=== PATIENT | female | born 1965 | race Caucasian/White ===

== ENCOUNTER 2017-12-07 13:39 | Emergency (ER) | payer OTHER ==
[~2017-12-07] VITALS: Ht 152.4 cm; Wt 68.0 kg
--- NOTE | 2017-12-07 13:54 | NUR ---
Pt admits taking xanax, advil and [employer] drinks. Pt denies SI.
--- NOTE | 2017-12-07 13:55 | NUR ---
Dr patton at the bedside for MSE.
[2017-12-07 14:23] LABS: BASOPHILS % (AUTO) 0.4 % (0.0-2.0); EOSINOPHILS % (AUTO) 0.2 % (0.0-7.0); HEMATOCRIT 40.5 % (31.2-41.9); HEMOGLOBIN 13.9 g/dL (10.9-14.3); LYMPHOCYTES # (AUTO) 1.5 K/uL (20.0-40.0); LYMPHOCYTES % (AUTO) 15.7 % (20.5-51.5); MEAN CORPUSCULAR HEMOGLOBIN 32.1 uug (24.7-32.8); MEAN CORPUSCULAR HGB CONC 34 g/dL (32.3-35.6); MEAN CORPUSCULAR VOLUME 93.5 fL (75.5-95.3); MONOCYTES # (AUTO) 0.7 K/uL (2.0-10.0); MONOCYTES % (AUTO) 7.4 % (0.0-11.0); NEUTROPHILS # (AUTO) 7.4 K/uL (1.8-8.9); NEUTROPHILS % (AUTO) 76.3 % (38.5-71.5); PLATELET COUNT (AUTO) 381 K/uL (179-408); RED BLOOD CELL COUNT(AUTO) 4.34 MIL/uL (3.63-4.92); WHITE BLOOD COUNT (AUTO) 9.7 K/uL (3.8-11.8)
[2017-12-07 14:31] LABS: CARBON DIOXIDE 26 mmol/L (21-32); CHLORIDE 103 mmol/L (98-107); CREATININE 1.1 mg/dL (0.6-1.3); GLUCOSE 150 mg/dL (74-106); POTASSIUM 3.4 mmol/L (3.5-5.1); UREA NITROGEN, BLOOD 9 mg/dL (7-18)
[2017-12-07 14:41] LABS: ETHANOL < 3 MG/DL (0-0)
[2017-12-07 14:48] LABS: ACETAMINOPHEN < 2.0 ug/mL (10-30); ALANINE AMINOTRANSFERASE 31 U/L (14-59); ALKALINE PHOSPHATASE 56 U/L (50-136); ASPARTATE AMINOTRANSFERASE 26 U/L (15-37); BILIRUBIN,DIRECT 0.1 mg/dL (0.0-0.2); BILIRUBIN,TOTAL 0.3 mg/dL (0.2-1.0); TOTAL PROTEIN, SERUM 7.1 g/dL (6.4-8.2)
--- NOTE | 2017-12-07 14:50 | NUR ---
Assisst pt to bathroom, small amount of urine collected and sent to lab.
--- NOTE | 2017-12-07 15:09 | NUR ---
Pt ate sandwich and juice, denies nausea.
--- NOTE | 2017-12-07 15:34 | NUR ---
Patient is resting comfortably in bed with eyes closed, NAD noted.
--- NOTE | 2017-12-07 17:16 | NUR ---
Spoke to Pt's roommate and friend Herminio Osman at [phone], per Herminio this is the fourth time pt attempted suicide,by mixing drugs and alcohol.Although Pt denies SI. Dr Noble aware.
--- NOTE | 2017-12-07 17:28 | NUR ---
Thad Jenkins from [facility] called, ETA 45 min.
--- NOTE | 2017-12-07 17:35 | NUR ---
Pt's sister Lisa Cardenas called and provided some info re Pt hX. Per pt's sister, pt has hx of bipolar and schizzoaffective, and not compliant w/ medication. Lisa's cell is [phone] Smith # is [phone].
[2017-12-07 17:48] LABS: *BILIRUBIN,URIN NEGATIVE (NEGATIVE); *BLOOD, URINE Trace-lysed (NEGATIVE); *CLARITY,URINE SLIGHTLY CLOUDY (CLEAR); *COLOR,URINE YELLOW (YELLOW); *KETONES,URINE TRACE (NEGATIVE); *PROTEIN,URINE TRACE (NEGATIVE); *UROBILINOGEN,URINE 0.2 E.U./dl (NORMAL); LEUKOCYTE ESTERASE ,URINE NEGATIVE (NEGATIVE); NITRITE, URINE NEGATIVE (NEGATIVE); UGLUCOSE NEGATIVE (NEGATIVE)
[2017-12-07 18:04] LABS: BACTERIA,URINE NONE SEEN /HPF (NONE SEEN); RBC,URINE 0-3 /HPF (0-3); SQUAMOUS EPITHELIAL CELL,UR FEW /HPF (NONE SEEN); WBC,URINE 0-3 /HPF (0-3)
[2017-12-07 18:13] LABS: *URINE HCG, QUAL NEGATIVE (NEGATIVE)
[2017-12-07 18:31] LABS: *AMPHETAMINE, URINE NEGATIVE (NEGATIVE); *BARBITURATE, URINE NEGATIVE (NEGATIVE); *CANNABINOID, URINE NEGATIVE (NEGATIVE); *COCCAINE, URINE NEGATIVE (NEGATIVE); *OPIATE, URINE POSITIVE (NEGATIVE); *PHENCYCLIDINE SCREEN,URINE NEGATIVE (NEGATIVE)
--- NOTE | 2017-12-07 18:36 | NUR ---
Thad Jenkins from [facility] at the bedside for Psych eval.
--- NOTE | 2017-12-07 19:10 | NUR ---
Hands off report given to Renetta AUGUSTINnight shift managernight nurse.
--- NOTE | 2017-12-07 19:24 | NUR ---
Received report from CHARLI Bran. Assumed care of pt at this time. Pt was evaluated by Thad, pt not placed on a hold.
--- NOTE | 2017-12-07 19:35 | NUR ---
Pt ambulating back and forth from rdanby to nursing station with unsteady gait. Pt instructed repeatedly to stay in bed. Security called to bedside.
--- NOTE | 2017-12-07 19:45 | NUR ---
Pt stable for discharge per MD when pt has steady gait or someone at home to assist her out of an Uber and stay with her at home.
--- NOTE | 2017-12-07 20:30 | NUR ---
Pt ambulated to with one person assist. Security remains at bedside. Attempted again to reach Herminio pt's "roommate" or "boyfriend", no answer.
--- NOTE | 2017-12-07 21:00 | NUR ---
Pt resting in position of comfort for self with eyes closed, resp even and unlabored. No obvious signs of distress at this time.
--- NOTE | 2017-12-07 22:05 | NUR ---
Attempting to reach pt's roommate Herminio for the third time, unable to get a hold of him.
--- NOTE | 2017-12-07 22:45 | NUR ---
Pt sts her roommate will be home at this time and if not sts her neighbor can stay with her. Pt ambulating in ER with slow by steady shuffled gait at this time. Pt stable for discharge per MD. Pt given ACI. Pt verbalized understanding of dc instructions. Pt ambulated to ER WR to wait for her Uber home.
[2017-12-08 04:41] VITALS: BP 124/56
== END 2017-12-07 22:45 | disposition home or self-care (01) ==
LOC: ER 13:39
DX: R41.82 Altered mental status, unspecified (principal)
CPT/HCPCS: 36415; 70030-TC; 71045; 80307; 84703; 85025; 85730; 87086; 93005; A4663; C1758; G0480; G0480-TC

== ENCOUNTER 2019-08-19 01:40 | Emergency (ER) | payer OTHER ==
[~2019-08-19] VITALS: Ht 165.1 cm; Wt 68.0 kg
--- NOTE | 2019-08-19 01:43 | NUR ---
Dr. Nathan at bedside for MSE.
[2019-08-19] MEDS ORDERED: ALPR2TAB2 PO (01:54)
--- NOTE | 2019-08-19 01:59 | NUR ---
Pt unable to provide urine at this time.
[2019-08-19] MEDS ORDERED: ZIPRASIDONE MESYLATE 20 MG VIAL IM ONE ×2 (02:00→02:12)
[2019-08-19 02:10] LABS: BASOPHILS % (AUTO) 0.3 % (0.0-2.0); EOSINOPHILS # (AUTO) 0.2 K/uL (0.0-0.7); EOSINOPHILS % (AUTO) 1.3 % (0.0-7.0); HEMATOCRIT 39.9 % (31.2-41.9); HEMOGLOBIN 13.2 g/dL (10.9-14.3); LYMPHOCYTES # (AUTO) 2.5 K/uL (20.0-40.0); LYMPHOCYTES % (AUTO) 17.7 % (20.5-51.5); MEAN CORPUSCULAR HEMOGLOBIN 31.8 uug (24.7-32.8); MEAN CORPUSCULAR HGB CONC 33 g/dL (32.3-35.6); MONOCYTES # (AUTO) 0.9 K/uL (2.0-10.0); MONOCYTES % (AUTO) 6.8 % (0.0-11.0); NEUTROPHILS # (AUTO) 10.2 K/uL (1.8-8.9); NEUTROPHILS % (AUTO) 73.9 % (38.5-71.5); PLATELET COUNT (AUTO) 250 K/uL (179-408); RED BLOOD CELL COUNT(AUTO) 4.16 MIL/uL (3.63-4.92); WHITE BLOOD COUNT (AUTO) 13.8 K/uL (3.8-11.8)
[2019-08-19 02:17] LABS: CARBON DIOXIDE 23 mmol/L (21-32); CHLORIDE 106 mmol/L (98-107); CREATININE 0.9 mg/dL (0.6-1.3); GLUCOSE 118 mg/dL (74-106); POTASSIUM 3.5 mmol/L (3.5-5.1); UREA NITROGEN, BLOOD 11 mg/dL (7-18)
[2019-08-19 02:22] LABS: ETHANOL < 3 MG/DL (0-0)
[2019-08-19 02:30] LABS: THYROID STIMULATING HORMONE 1.702 mIU/mL (0.358-3.740)
[2019-08-19 02:32] LABS: ACETAMINOPHEN < 2.0 ug/mL (10-30); ALANINE AMINOTRANSFERASE 30 U/L (14-59); ALKALINE PHOSPHATASE 100 U/L (50-136); ASPARTATE AMINOTRANSFERASE 36 U/L (15-37); BILIRUBIN,DIRECT 0.3 mg/dL (0.0-0.2); BILIRUBIN,TOTAL 1.1 mg/dL (0.2-1.0); TOTAL PROTEIN, SERUM 6.9 g/dL (6.4-8.2)
--- NOTE | 2019-08-19 05:34 | NUR ---
Pt unable to provide urine.
--- NOTE | 2019-08-19 07:13 | NUR ---
Report given to Radha olmedo.
--- NOTE | 2019-08-19 07:14 | NUR ---
Title Curative Specialist assumes care. Patient is for psych crisis evaluation per Dr Muñoz@this time. Patient is AOX4, calm & breathing easily, NAD, denies suicidal or homicidal thoughts@the moment. Breakfastr tray ordered.
--- NOTE | 2019-08-19 08:03 | NUR ---
Still no urine sample, patient was reminded again. Breakfast tray is now@bedside.
--- NOTE | 2019-08-19 08:08 | NUR ---
Patient wants to leave, notified. Patient is on "medical HOLD" until seen by darell Jenkins. Nursing track laying supervisor Johanne notified. Security assistance requested. software validation technician Olivier notified.
--- NOTE | 2019-08-19 10:02 | NUR ---
Patient wants toothbrush, toothpaste & haircomb after eating 100% of the breakfast tray. darell Jenkins is here.
[2019-08-19 10:09] LABS: *BLOOD, URINE NEGATIVE (NEGATIVE); *CLARITY,URINE CLOUDY (CLEAR); *KETONES,URINE 2+ (NEGATIVE); *UROBILINOGEN,URINE 0.2 E.U./dl (NORMAL); LEUKOCYTE ESTERASE ,URINE NEGATIVE (NEGATIVE); NITRITE, URINE NEGATIVE (NEGATIVE); UGLUCOSE NEGATIVE (NEGATIVE)
--- NOTE | 2019-08-19 10:16 | NUR ---
Patient is AOX4, denies being homeless. Patient says she stays with her friend & boyfriend.
[2019-08-19 10:17] LABS: *AMPHETAMINE, URINE NEGATIVE (NEGATIVE); *BARBITURATE, URINE NEGATIVE (NEGATIVE); *CANNABINOID, URINE NEGATIVE (NEGATIVE); *COCCAINE, URINE NEGATIVE (NEGATIVE); *OPIATE, URINE NEGATIVE (NEGATIVE); *PHENCYCLIDINE SCREEN,URINE NEGATIVE (NEGATIVE)
--- NOTE | 2019-08-19 10:23 | NUR ---
After morning oral hygiene was done by patient herself, patient was discharged in stable conditon. Written and verbal after care instructions given to patient. Patient verbalizes understanding of instructions. Patient left ER with steady gait. Patient denies being homeless & patient's address was verified by Thad Jenkins.
[2019-08-19 10:27] LABS: *BILIRUBIN,URIN 1+ (NEGATIVE); *COLOR,URINE DARK YELLOW (YELLOW)
[2019-08-19 10:37] LABS: BACTERIA,URINE FEW /HPF (NONE SEEN); SQUAMOUS EPITHELIAL CELL,UR MODERATE /HPF (NONE SEEN)
[2019-08-19 10:38] LABS: MUCUS,URINE MODERATE /LPF (0-FEW)
== END 2019-08-19 10:29 | disposition home or self-care (01) ==
LOC: ER 01:43
DX: R44.0 Auditory hallucinations (principal); F17.210 Nicotine dependence, cigarettes, uncomplicated; Z79.899 Other long term (current) drug therapy
CPT/HCPCS: 36415; 80048; 80076; 80307; 81000; 81001; 82550; 84443; 85025; 87086; 93005; 96372; 99284; G0480 ×2; G0481; J3486; A4663

== ENCOUNTER 2025-04-25 12:57 | Emergency (ER) | payer OTHER ==
[~2025-04-25] VITALS: Ht 160 cm; Wt 77.1 kg
[~2025-04-25 12:57] MED LIST: FURO-152 PO; IBUP-1955 PO; SULF1TAB48 PO
[2025-04-25] MEDS ORDERED: ONDANSETRON 4 MG/2 ML VIAL ONE (13:16)
[2025-04-25] MEDS ORDERED: MAG HYDROX/AL HYDROX/SIMETH 30 ML LIQUID UDC ONE (13:16)
[2025-04-25] MEDS ORDERED: LIDOCAINE VISCUS 2% 15 ML UDC ONE (13:16)
[2025-04-25] MEDS ORDERED: FAMOTIDINE. 20 MG/2 ML VIAL IV ONE (13:17)
[2025-04-25] MEDS: LIDOCAINE VISCUS 2% 15 ML UDC MM ONE (13:20)
[2025-04-25] MEDS: ONDANSETRON 4 MG/2 ML VIAL IV ONE (13:20)
[2025-04-25] MEDS: FAMOTIDINE. 20 MG/2 ML VIAL IV ONE (13:20)
[2025-04-25] MEDS: MAG HYDROX/AL HYDROX/SIMETH 30 ML LIQUID UDC PO ONE (13:20)
[2025-04-25] MEDS: IV NORMAL SALINE 1000 ML BAG IV ONE (13:20)
[2025-04-25 13:21] LABS: PLATELET COUNT (AUTO) 370 K/uL (179-408); RED BLOOD CELL COUNT(AUTO) 5.01 MIL/uL (3.63-4.92); RED CELL DISTRIBUTION WIDTH 14.7 % (12.3-17.7); WHITE BLOOD COUNT (AUTO) 15.1 K/uL (3.8-11.8)
[2025-04-25 13:28] LABS: CREATININE 0.7 mg/dL (0.6-1.3); SODIUM SERUM 145.0 mmol/L (136-145); UREA NITROGEN, BLOOD 10.0 mg/dL (7-18)
[2025-04-25 13:34] LABS: ASPARTATE AMINOTRANSFERASE 31.0 U/L (15-37); ETHANOL < 3 MG/DL (0-10); TOTAL PROTEIN, SERUM 8.1 g/dL (6.4-8.2)
[2025-04-25] MEDS ORDERED: FAMO-132 PO (13:36)
[2025-04-25] MEDS ORDERED: ONDA4TAB5 PO (13:36)
[2025-04-25 13:48] LABS: *CLARITY,URINE CLEAR (CLEAR); *COLOR,URINE YELLOW (YELLOW); *KETONES,URINE 4+ (NEGATIVE); *PROTEIN,URINE 2+ (NEGATIVE); *UROBILINOGEN,URINE 0.2 E.U./dl (NORMAL); LEUKOCYTE ESTERASE ,URINE NEGATIVE (NEGATIVE); NITRITE, URINE NEGATIVE (NEGATIVE); UGLUCOSE NEGATIVE (NEGATIVE)
[2025-04-25 13:49] LABS: *BILIRUBIN,URIN 1+ (NEGATIVE); *BLOOD, URINE TRACE (NEGATIVE)
[2025-04-25] MEDS ORDERED: LORAZEPAM 2 MG/1 ML VIAL ONE (13:49)
[2025-04-25] MEDS: LORAZEPAM 2 MG/1 ML VIAL IV ONE (13:56)
[2025-04-25 14:19] LABS: SQUAMOUS EPITHELIAL CELL,UR FEW /HPF (NONE SEEN)
[2025-04-25 15:52] VITALS: BP 153/93; O2SAT 95
== END 2025-04-25 15:52 ==
LOC: ER 12:57
DX: K29.20 Alcoholic gastritis without bleeding (principal); F10.10 Alcohol abuse, uncomplicated; F17.200 Nicotine dependence, unspecified, uncomplicated; F20.9 Schizophrenia, unspecified; G89.29 Other chronic pain; I10 Essential (primary) hypertension; Z59.00 Homelessness unspecified; Z79.899 Other long term (current) drug therapy; Z87.42 Personal history of other diseases of the female genital tract; Z87.448 Personal history of other diseases of urinary system; Z87.2 Personal history of diseases of the skin and subcutaneous tissue; Y90.0 Blood alcohol level of less than 20 mg/100 ml
CPT/HCPCS: 80076; 80048; 81001; 83690; 85025; 87086; 36415; 99284; 96361; 96374; 96375; 80320; J1308; J2060; J2405; J7040; A4606; A4663; G0480

== ENCOUNTER 2025-09-24 13:50 | Emergency (ER) | payer MEDICAID, OTHER ==
[~2025-09-24] VITALS: Ht 157.5 cm; Wt 56.7 kg
[~2025-09-24 13:50] MED LIST changes: +FAMO-132 PO; -IBUP-1955 PO; +IBUP-2760 PO; +ONDA4TAB5 PO
[2025-09-24] MEDS ORDERED: LIDOCAINE VISCUS 2% 15 ML UDC ONE (14:11)
[2025-09-24] MEDS ORDERED: ONDANSETRON 4 MG/2 ML VIAL ONE ×2 (14:11→16:11)
[2025-09-24] MEDS ORDERED: MORPHINE SULFATE 4 MG/1 ML DISP.SYRIN ONE ×2 (14:12→17:18)
[2025-09-24] MEDS ORDERED: FAMOTIDINE. 20 MG/2 ML VIAL IV ONE (14:12)
[2025-09-24] MEDS ORDERED: MAG HYDROX/AL HYDROX/SIMETH 30 ML LIQUID UDC ONE (14:13)
[2025-09-24] MEDS ORDERED: BISA10SU61 RC (14:21)
[2025-09-24] MEDS ORDERED: MORP15TA7 PO (14:21)
[2025-09-24] MEDS ORDERED: NA P133E RC (14:21)
[2025-09-24] MEDS ORDERED: IBUP-1953 PO (14:21)
[2025-09-24] MEDS ORDERED: FOLI1TAB27 PO (14:21)
[2025-09-24] MEDS ORDERED: LACT10SO68 PO (14:21)
[2025-09-24] MEDS ORDERED: ALPR1TAB2 PO ×2 (14:21)
[2025-09-24] MEDS ORDERED: BACL10TA PO (14:21)
[2025-09-24] MEDS ORDERED: OLAN-45 PO (14:21)
[2025-09-24] MEDS ORDERED: [UNRECOGNIZED DRUG - CODE] PO (14:21)
[2025-09-24] MEDS ORDERED: ACET-3752 PO (14:21)
[2025-09-24] MEDS ORDERED: ZOLP5TAB2 PO (14:21)
[2025-09-24] MEDS ORDERED: LOPE2TAB25 PO (14:21)
[2025-09-24] MEDS ORDERED: OXYC5CAP22 PO (14:21)
[2025-09-24] MEDS ORDERED: MAG-55 PO (14:21)
[2025-09-24] MEDS: IV NORMAL SALINE 1000 ML BAG IV ONE (14:25)
[2025-09-24] MEDS: MAG HYDROX/AL HYDROX/SIMETH 30 ML LIQUID UDC PO ONE (14:26)
[2025-09-24] MEDS: FAMOTIDINE. 20 MG/2 ML VIAL IV ONE (14:26)
[2025-09-24] MEDS: ONDANSETRON 4 MG/2 ML VIAL IV ONE ×2 (14:26→16:12)
[2025-09-24] MEDS: LIDOCAINE VISCUS 2% 15 ML UDC MM ONE (14:26)
[2025-09-24] MEDS: MORPHINE SULFATE 2 MG/1 ML DISP.SYRIN IV ONE (14:26)
[2025-09-24 14:32] LABS: PLATELET COUNT (AUTO) 376 K/uL (179-408); RED BLOOD CELL COUNT(AUTO) 4.98 MIL/uL (3.63-4.92); RED CELL DISTRIBUTION WIDTH 14.2 % (12.3-17.7); WHITE BLOOD COUNT (AUTO) 11.7 K/uL (3.8-11.8)
[2025-09-24 14:36] LABS: CREATININE 0.8 mg/dL (0.6-1.3); SODIUM SERUM 146.0 mmol/L (136-145); UREA NITROGEN, BLOOD 10.0 mg/dL (7-18)
[2025-09-24 14:42] LABS: ASPARTATE AMINOTRANSFERASE 20.0 U/L (15-37); TOTAL PROTEIN, SERUM 8.5 g/dL (6.4-8.2)
[2025-09-24 14:45] LABS: ETHANOL < 3 MG/DL (0-10)
[2025-09-24] MEDS ORDERED: POTA10CA94 PO (15:58)
[2025-09-24] MEDS ORDERED: POTASSIUM CHLORIDE 20 MEQ TAB.PRT.SR ONE (16:11)
[2025-09-24] MEDS: POTASSIUM CHLORIDE 20 MEQ TAB.PRT.SR PO ONE (16:12)
[2025-09-24 17:04] VITALS: BP 141/85
[2025-09-24] MEDS: MORPHINE SULFATE 4 MG/1 ML DISP.SYRIN IV ONE (17:19)
[2025-09-24 18:05] VITALS: BP 140/76; TEMP 97.9; O2SAT 98
== END 2025-09-24 19:24 ==
LOC: ER 13:59
DX: F17.200 Nicotine dependence, unspecified, uncomplicated (principal); E87.6 Hypokalemia; E27.8 Other specified disorders of adrenal gland; F20.9 Schizophrenia, unspecified; G89.29 Other chronic pain; I11.9 Hypertensive heart disease without heart failure; K44.9 Diaphragmatic hernia without obstruction or gangrene; Z79.899 Other long term (current) drug therapy; Z87.11 Personal history of peptic ulcer disease; Z87.19 Personal history of other diseases of the digestive system; Z98.82 Breast implant status; Z99.3 Dependence on wheelchair
CPT/HCPCS: 80076; 80048; 83690; 85025; 71045; 74176; 99285; 96374; 96375; 96376; 80320; J1308; J2405 ×2; J2270 ×2; J7040; A4606; A4663; G0480